=== PATIENT | male | born 1975 | race Caucasian/White ===

== ENCOUNTER 2023-12-27 22:07 | Emergency (ER) | payer OTHER, SELFPAY ==
[~2023-12-27] VITALS: Ht 180.3 cm; Wt 170.7 kg
[2023-12-27 22:36] LABS: BASO # 0.1 10^3/uL (0.0-0.2); BASO % 0.6 % (0.0-1.0); EOS # 0.2 10^3/uL (0.0-0.5); EOS % 1.2 % (0.0-3.0); HEMOGLOBIN 14.2 g/dl (13.5-17.5); LYMPH # 4.8 10^3/uL (1.5-5.0); LYMPH % 29.7 % (24.0-44.0); MEAN CORPUSCULAR HEMOGLOBIN 29.5 pg (27.0-33.0); MEAN CORPUSCULAR VOLUME 89.2 fl (80.0-96.0); MONO # 1.1 10^3/uL (0.0-0.8); NEUTROPHILS # 9.9 10^3/uL (1.5-8.5); NEUTROPHILS % 61.2 % (36.0-66.0); PLATELET COUNT, AUTOMATED 321 10^3/uL (150-450); RED BLOOD COUNT 4.82 10^6/uL (4.30-6.10); WHITE BLOOD COUNT 16.2 10^3/uL (4.0-10.0)
[2023-12-27 23:05] LABS: CK-MB VALUE MASS < 1.0 NG/ML (<3.6); LIPASE 25 U/L (12-53)
[2023-12-27 23:07] LABS: ALBUMIN 3.4 G/DL (3.2-5.2); ALKALINE PHOSPHATASE 96 U/L (46-116); ALT/SGPT 19 U/L (7.0-40); AST/SGOT 17 U/L (<34); BILIRUBIN,DIRECT 0.2 MG/DL (<0.4); BILIRUBIN,TOTAL 0.7 MG/DL (0.3-1.2); BLOOD UREA NITROGEN 16 MG/DL (9-23); CALCIUM LEVEL 10.1 MG/DL (8.5-10.1); CARBON DIOXIDE LEVEL 26 MMOL/L (20-31); CHLORIDE LEVEL 107 MMOL/L (98-107); CREATININE FOR GFR 1.25 MG/DL (0.70-1.30); GLOMERULAR FILTRATION RATE > 60.0 (>60); GLUCOSE, FASTING 149 MG/DL (60-100); POTASSIUM SERUM 4.4 MMOL/L (3.5-5.1); SODIUM LEVEL 140 MMOL/L (136-145); TOTAL PROTEIN 7.1 G/DL (5.7-8.2)
[2023-12-27 23:08] LABS: CPK CREATINE PHOSPHOKINASE 81 U/L (46-171); MB/CK RELATIVE INDEX 1.23 (< OR =4)
[2023-12-28] MEDS: MORPHINE 2 MG/ML 1ML VIAL IV ONE (01:25)
[2023-12-28] MEDS ORDERED: ISOVUE-370 76% 100ML VIAL As Ordered ONE (01:40)
[2023-12-28] MEDS: MORPHINE 4 MG/ML 1ML VIAL IV ONE (01:40)
[2023-12-28] MEDS: NS 1,000 ML IV ONE (02:49)
[2023-12-28] MEDS: PIPERACILLIN/TAZOBACTAM SOD 4.5 GM in D5W MINI-BAG PLUS 50 ML IV ONE (02:50)
[2023-12-28] MEDS ORDERED: KETO10TAB PO (03:52)
[2023-12-28] MEDS ORDERED: FLOM0.4C39 PO (03:52)
[2023-12-28] MEDS ORDERED: CEPH500C PO (03:52)
[2023-12-28] MEDS: TAMSULOSIN 0.4 MG CAP PO ONE (04:06)
[2023-12-28] MEDS: KETOROLAC 30 MG/ML 1ML VIAL IV ONE (04:06)
[2023-12-28 04:14] VITALS: BP 160/80; TEMP 96.9; O2SAT 97
== END 2023-12-28 04:20 | disposition home or self-care (01) ==
LOC: M ED 22:07
DX: N20.1 Calculus of ureter (principal); K57.32 Diverticulitis of large intestine without perforation or abscess without bleeding; K42.9 Umbilical hernia without obstruction or gangrene; E66.9 Obesity, unspecified; Z79.2 Long term (current) use of antibiotics; Z79.899 Other long term (current) drug therapy
CPT/HCPCS: 74177; 80048; 80076; 81001; 82550; 82553; 83605; 83690; 84484; 85025; 87040; 93005; 96365; 96366; 96375; 99284; J1885; J2543; Q9967

== ENCOUNTER → 2024-04-15 | Outpatient (REF) ==
[~2024-04-15] MED LIST: CEPH500C PO; FLOM0.4C39 PO; KETO10TAB PO
== END ==
LOC: M EMP 07:45
PROVIDERS: ATTEND Family Medicine
DX: Z11.52 Encounter for screening for COVID-19 (principal)

== ENCOUNTER → 2024-04-15 | Outpatient (REF) | LOC: M EMP 07:38 | PROVIDERS: ATTEND Family Medicine | DX: Z11.52 Encounter for screening for COVID-19 (principal) ==